=== PATIENT | female | born 1965 ===

== ENCOUNTER 2020-11-17 05:50 | Inpatient (IN) | payer OTHER ==
[~2020-11-17] VITALS: Ht 149.9 cm; Wt 82.6 kg
[~2020-11-17 05:50] MED LIST: ARIMIDEX PO; HUMALOG100 UNIT/2; LANTUS SOL100 UNIT/1; SYNTHROID75 MCG; TOPROL XL25 M1 PO; ZESTRIL40 M1 PO
[2020-11-18] MEDS ORDERED: ANASTROZOLE1 MG PO (08:21)
[2020-11-20] MEDS ORDERED: ULTRAM50 MG PO (13:18)
[2020-11-20] MEDS ORDERED: TYLENOL ARTHRI650 MG PO (13:18)
[2020-11-20] MEDS ORDERED: COLACE100 MG PO (13:18)
[2020-11-20] MEDS ORDERED: NEURONTIN600 M1 PO (13:18)
== END 2020-11-20 13:40 | disposition home or self-care (01) | DRG 355 ==
LOC: CIR.AMB 05:50 → EDSTATUS 07:45 → CIR.AMB 07:45 → SURH 07:45 → CIR.AMB 10:30 → O/R 17:38 → SURG 17:38
PROVIDERS: ADMIT Surgery; ATTEND Surgery
PROC: 0WUF0JZ Supplement Abdominal Wall with Synthetic Substitute, Open Approach (ICD-10-PCS; principal; 2020-11-17 10:30)
DX: K43.0 Incisional hernia with obstruction, without gangrene (principal); I10 Essential (primary) hypertension; E11.9 Type 2 diabetes mellitus without complications

== ENCOUNTER 2020-11-28 10:07 | Inpatient (IN) | payer OTHER ==
[~2020-11-28] VITALS: Ht 175.3 cm; Wt 81.2 kg
[~2020-11-28 10:07] MED LIST changes: +ANASTROZOLE1 MG PO; +COLACE100 MG PO; +NEURONTIN600 M1 PO; +TYLENOL ARTHRI650 MG PO; +ULTRAM50 MG PO
--- NOTE | 2020-11-28 10:28 | NUR ---
PTE REFIERE DOLOR ABDOMINAL REFIERE FUE OPERADA POR DR RYAN CORDERO Y LLEVA VARIOS RICE CON MUCHO DOLOR SE HIEU S/V YS EUBIAC EN AREA DE OBSERVACION
--- NOTE | 2020-11-28 11:11 | NUR ---
SE RECIBE PTE FEMENINA DE [age]YR ALERTA CONCIENTE Y TRANQUILA EN COMPANIA DE FAMILIAR. PTE ES EVALUADA POR EL DARIAN VELASCO RORY QUIEN ORDENA TRATAMIENTO LA CUAL SE EJECUTA POR MS.SALGADO JAY . SE MANTIENE BAJO OBSERVACION POR CAMBIOS.SE LE DA CONTGRASTE A PTE PARA ESTUDIO DE CT SCAN.
[2020-12-27] MEDS ORDERED: NEURONTIN600 M1 PO (07:29)
[2020-12-27] MEDS ORDERED: MIRALAX17 GM PO (07:29)
== END 2020-12-27 08:18 | disposition home or self-care (01) | DRG 856 ==
LOC: ER 10:07 → SURG 21:16
PROVIDERS: ADMIT Surgery; ATTEND Surgery
PROC: 0W9G30Z Drainage of Peritoneal Cavity with Drainage Device, Percutaneous Approach (ICD-10-PCS; 2020-11-29)
PROC: 3E0F7GC Introduction of Other Therapeutic Substance into Respiratory Tract, Via Natural or Artificial Opening (ICD-10-PCS; 2020-11-29)
PROC: 02HV33Z Insertion of Infusion Device into Superior Vena Cava, Percutaneous Approach (ICD-10-PCS; 2020-11-30)
PROC: 0WPG4JZ Removal of Synthetic Substitute from Peritoneal Cavity, Percutaneous Endoscopic Approach (ICD-10-PCS; 2020-12-01)
PROC: 0W9G40Z Drainage of Peritoneal Cavity with Drainage Device, Percutaneous Endoscopic Approach (ICD-10-PCS; principal; 2020-12-01 13:00)
PROC: 30233N1 Transfusion of Nonautologous Red Blood Cells into Peripheral Vein, Percutaneous Approach (ICD-10-PCS; 2020-12-02)
PROC: 0W9G30Z Drainage of Peritoneal Cavity with Drainage Device, Percutaneous Approach (ICD-10-PCS; 2020-12-08)
PROC: 0W9B3ZX Drainage of Left Pleural Cavity, Percutaneous Approach, Diagnostic (ICD-10-PCS; 2020-12-10)
PROC: 0W9G30Z Drainage of Peritoneal Cavity with Drainage Device, Percutaneous Approach (ICD-10-PCS; 2020-12-17)
DX: T81.43XA Infection following a procedure, organ and space surgical site, initial encounter (principal); K65.1 Peritoneal abscess; J45.901 Unspecified asthma with (acute) exacerbation; J90 Pleural effusion, not elsewhere classified; K66.0 Peritoneal adhesions (postprocedural) (postinfection); R09.02 Hypoxemia; G47.33 Obstructive sleep apnea (adult) (pediatric); E66.9 Obesity, unspecified; I10 Essential (primary) hypertension; E03.8 Other specified hypothyroidism; Z20.822 Contact with and (suspected) exposure to COVID-19; E11.9 Type 2 diabetes mellitus without complications; Z68.26 Body mass index [BMI] 26.0-26.9, adult

== ENCOUNTER 2020-12-30 11:36 | Inpatient (IN) | payer OTHER ==
[~2020-12-30] VITALS: Ht 149.9 cm; Wt 80.7 kg
[~2020-12-30 11:36] MED LIST changes: +MIRALAX17 GM PO
--- NOTE | 2020-12-30 12:04 | NUR ---
SE RECIBE PACIENTE FEMENINA DE 55 ANOS DE EDAD DESPIERTA Y ALERTA CON QUEJA PRINCIPAL DE DOLOR ABDOMINAL EN LADO IZQ. REFIERE BE ESTADO HOSPITALIZADA HASTA EL LUNES POR OPERACION DE HERNIA
--- NOTE | 2020-12-30 12:36 | NUR ---
SE EJECUTA ORDEN MEDICA DE ADMINISTRACION DE MEDICAMENTO. SE ORIENTO A PACIENTE SOBRE USO Y EFECTOS.
--- NOTE | 2020-12-30 15:45 | NUR ---
SE RECIBE PTE EN EL AREA DE OBSERVACION EN JHOAN CON BARANDAS ELEVADA Y TIMBRE ACCESIBLE PTE ALERTA Y ORIENTADO POR 3 NO PRESENTA DOLOR AL MOMENTO SE OBSERVA VENOPUNCION PATENTE Y VERONICA DE EDMEA PENDIENTE ESTUDIO DE CT PO
[2021-01-18] MEDS ORDERED: FLAGYL500MG PO (14:23)
[2021-01-18] MEDS ORDERED: FLUCONAZOLE100 MG PO (14:23)
[2021-01-18] MEDS ORDERED: INTESTINEX680 M1 PO (14:23)
== END 2021-01-18 14:54 | disposition home or self-care (01) | DRG 863 ==
LOC: ER 11:36 → SURG 21:58 → O/R 01-13 08:30 → SURG 01-13 08:35
PROVIDERS: ADMIT Surgery; ATTEND Surgery
PROC: 3E0F7SF Introduction of Other Gas into Respiratory Tract, Via Natural or Artificial Opening (ICD-10-PCS; 2020-12-31)
PROC: 0W9G30Z Drainage of Peritoneal Cavity with Drainage Device, Percutaneous Approach (ICD-10-PCS; principal; 2021-01-01)
PROC: 02HV33Z Insertion of Infusion Device into Superior Vena Cava, Percutaneous Approach (ICD-10-PCS; 2021-01-01)
DX: K68.11 Postprocedural retroperitoneal abscess (principal); K91.872 Postprocedural seroma of a digestive system organ or structure following a digestive system procedure; B37.89 Other sites of candidiasis; E03.8 Other specified hypothyroidism; E11.9 Type 2 diabetes mellitus without complications; I10 Essential (primary) hypertension; Z20.822 Contact with and (suspected) exposure to COVID-19; D64.9 Anemia, unspecified; G47.33 Obstructive sleep apnea (adult) (pediatric); Z79.4 Long term (current) use of insulin